=== PATIENT | male | born 1975 | race Two or more races ===

== ENCOUNTER 2022-03-04 13:07 | Emergency (ER) | payer OTHER ==
[~2022-03-04] VITALS: Ht 175.3 cm; Wt 84.8 kg
[2022-03-04] MEDS ORDERED: TRAM1TAB98 PO (13:34)
== END 2022-03-04 16:11 | disposition home or self-care (01) ==
LOC: ER 13:07
DX: S39.013A Strain of muscle, fascia and tendon of pelvis, initial encounter (principal)